=== PATIENT | female | born 1995 | race Caucasian/White ===

== ENCOUNTER 2016-05-20 22:02 | Outpatient (CLI) | payer OTHER ==
[~2016-05-20] VITALS: Ht 154.9 cm; Wt 68.2 kg
[2016-05-20 22:17] VITALS: BP 128/86
[2016-05-20 22:52] LABS: AMNI LOT 5540986
[2016-05-20 23:03] LABS: AMNI OBC PASS; AMNISURE NEGATIVE (NEGATIVE)
== END 2016-05-20 23:08 | disposition home or self-care (01) ==
LOC: LDOP 22:02
PROVIDERS: ATTEND Obstetrics & Gynecology
DX: O42.92 Full-term premature rupture of membranes, unspecified as to length of time between rupture and onset of labor (principal); Z3A.38 38 weeks gestation of pregnancy
CPT/HCPCS: 59025; 84112; 89060; 99201; G0463; Q0114